=== PATIENT | female | born 1965 | race African-American/Black ===

== ENCOUNTER 2016-10-13 20:14 | Emergency (ER) | payer SELFPAY ==
--- NOTE | 2016-10-13 21:43 | RADIOLOGY REPORT (SQ) ---
EXAM DESCRIPTION: KNEE RIGHT 4 VIEWS COMPLETED DATE/TIME: 10/13/2016 9:21 pm REASON FOR STUDY: fall twice on right knee with pain COMPARISON: 11/10/2014. NUMBER OF VIEWS: Four views. TECHNIQUE: AP, lateral, and both oblique radiographic images acquired of the right knee. LIMITATIONS: None. FINDINGS: MINERALIZATION: Normal. BONES: No acute fracture or dislocation. No worrisome bone lesions. JOINT: There is mild to moderate narrowing of the mediolateral compartments. Tricompartmental degene rative osteophyte formation noted. There is narrowing of the patellofemoral joint space. No signifi cant effusion. SOFT TISSUES: No soft tissue swelling. No radio-opaque foreign body. OTHER: No other significant finding. IMPRESSION: No acute fracture or dislocation identified. Degenerative osteoarthritis of the knee, m ildly progressed since the prior study. TECHNICAL DOCUMENTATION: JOB ID: [id number] [employer]- All Rights Reserved
[2016-10-13] MEDS ORDERED: KETOROLAC TROMETHAMINE INJ/PF 30 MG/1 ML SDV IM ONE (22:02)
--- NOTE | 2016-10-13 22:02 | ER Document Report ---
HPI - HPI Onset: Other - chronic right knee pain but with two recent falls onto the right knee b/c it gave out Quality of pain: Achy, Throbbing Pain Level: 5 Exacerbated by: Movement, Walking Relieved by: Remaining still Similar symptoms previously: Yes - h/o OA in this knee that requires surgery Recently seen / treated by doctor: Yes - CARDIOVASCULAR Cardiovascular: DENIES: Chest pain - REPRODUCTIVE Reproductive: DENIES: : - DERM Skin Color: Normal Past Medical History - Social History Smoking Status: Current Every Day Smoker Chew tobacco use (# tins/day): No Frequency of alcohol use: None Drug Abuse: None Family History: Reviewed & Not Pertinent, Other Patient has suicidal ideation: No Patient has homicidal ideation: No - Past Medical History Cardiac Medical History: Denies: Hx Congestive Heart Failure, Hx DVT, Hx Heart Attack, Hx Hypercholesterolemia, Hx Hypertension, Hx Pulmonary Embolism Pulmonary Medical History: Reports: Hx Asthma Denies: Hx COPD, Hx Sleep Apnea Neurological Medical History: Denies: Hx Seizures Endocrine Medical History: Denies: Hx Diabetes Mellitus Type 1, Hx Diabetes Mellitus Type 2, Hx Hyperthyroidism, Hx Hypothyroidism Renal/ Medical History: Denies: Hx Peritoneal Dialysis Malignancy Medical History: Reports: Hx Breast Cancer GI Medical History: Denies: Hx Cirrhosis, Hx Gastroesophageal Reflux Disease, Hx Hepatitis Musculoskeltal Medical History: Reports Hx Arthritis Psychiatric Medical History: Denies: Hx Depression Infectious Medical History: Denies: Hx C-Diff, Hx Hepatitis, Hx MRSA Past Surgical History: Reports: Hx Breast Surgery - Left mastectomy, Hx Mastectomy - left, Hx Orthopedic Surgery - Left knee surgery - Immunizations Hx Diphtheria, Pertussis, Tetanus Vaccination: Yes Vertical Provider Document - CONSTITUTIONAL Agree With Documented VS: Yes Exam Limitations: No Limitations General Appearance: WD/WN, No Apparent Distress - INFECTION CONTROL TRAVEL OUTSIDE OF THE [place] IN LAST 30 DAYS: No - RESPIRATORY O2 Sat by Pulse Oximetry: 100 - CARDIOVASCULAR Pulses: Normal: Popliteal, Dorsalis pedis - MUSCULOSKELETAL/EXTREMETIES Musculoskeletal/Extremeties: MAEW, FROM, Tender - lateral to the patella right knee, No Edema. negative: Eccymosis - NEURO Level of Consciousness: Awake, Alert, Appropriate Motor/Sensory: No Motor Deficit, No Sensory Deficit, Other - gait stable and able to bear weight - DERM Integumentary: Warm, Dry, No Rash. negative: Laceration Course - Re-evaluation Re-evalutation: 10/13/16 22:23 Patient is a 51-year-old female who is hemodynamically stable, no distress afebrile. No evidence of fracture or dislocation noted on x-ray. Evidence of osteoarthritis progressed since previous evaluation. Patient will be sent home on steroid pack and Motrin to follow-up with her primary care doctor for possible referral for orthopedist. - Vital Signs Vital signs: Temp Pulse Resp BP Pulse Ox 98 F 105 H 18 140/80 H 100 10/13/16 20:52 10/13/16 20:52 10/13/16 20:52 10/13/16 20:52 10/13/16 20:52 - Diagnostic Test Radiology reviewed: Image reviewed, Reports reviewed Discharge - Discharge Clinical Impression: Knee pain Qualifiers: Chronicity: chronic Laterality: right Qualified Code(s): M25.561 - Pain in right knee Condition: Good Disposition: HOME, SELF-CARE Instructions: Ice & Elevation ([facility]), Arthritis ([facility]) Prescriptions: Ibuprofen [Motrin 800 mg Tablet] 800 mg PO Q8H PRN #30 tab PRN Reason: Methylprednisolone [Medrol Dosepack (4 mg/Tab) 21 Tab/Dosepak] 4 mg PO ASDIR PRN #21 tab.ds.pk PRN Reason: Forms: Elevated Blood Pressure Referrals: DANIELLE HUNTER MD [Primary Care Provider] - Follow up as needed
[2016-10-13 22:19] VITALS: BP 141/81
== END 2016-10-13 22:19 | disposition home or self-care (01) ==
LOC: ER 20:14
DX: G89.29 Other chronic pain (principal); M25.561 Pain in right knee; F17.200 Nicotine dependence, unspecified, uncomplicated; Z85.3 Personal history of malignant neoplasm of breast; Z90.12 Acquired absence of left breast and nipple
CPT/HCPCS: 99283; 96372; 73564; J1885